=== PATIENT | male | born 1935 | race Caucasian/White ===

== ENCOUNTER 2018-06-14 10:07 | Emergency (ER) | payer MEDICARE, BC ==
--- NOTE | 2018-06-14 10:37 | ED ---
GI/ HPI - HPI Summary HPI Summary: This patient is a 83 year old M presenting to [facility] with a chief complaint of hematuria that began last night. The patient rates the pain 0/10 in severity. Patient denies back pain, similar sx in the past, dysuria, fever, chills, trauma , n/v/d, kidney stones in the past, urinary retention, and passing blood clots. Pt just recovered last month from prostatitis that lasted 4 months. He is not on blood thinners and had a routine psychical at his PCP last week. Hx BPH and sees Dr. Louise in [place] once a year and his last PSA was 1.5. - History of Current Complaint Chief Complaint: EDUrogenitalProblems Time Seen by Provider: 06/14/18 10:20 Stated Complaint: BLOOD IN URINE Hx Obtained From: Patient Timing: Constant Severity: Mild Current Severity: Mild Vaginal Bleeding Description: Bright Red Pain Intensity: 0 Location of Pain: None Associated Signs and Symptoms: Positive: Negative - back pain, similar sx in the past, dysuria, fever, chills, trauma, n/v/d, kidney stones in the past, urinary retention, and passing blood clots. - Allergy/Home Medications Allergies/Adverse Reactions: Allergies Allergy/AdvReac Type Severity Reaction Status Date / Time No Known Allergies Allergy Verified 06/14/18 10:13 Home Medications: Home Medications Alfuzosin HCl [Uroxatral] 10 mg PO DAILY 06/14/18 [History Confirmed 06/14/18] Dutasteride (NF) [Avodart (NF)] 1 cap PO DAILY 06/14/18 [History Confirmed 06/14] Losartan TAB* [Cozaar TAB*] 100 mg PO DAILY 06/14/18 [History Confirmed 06/14/18 ] Tadalafil [Cialis] 2.5 mg PO DAILY 06/14/18 [History Confirmed 06/14/18] PMH/Surg Hx/FS Hx/Imm Hx Cardiovascular History: Reports: Hx Hypertension History: Reports: Hx Benign Prostatic Hyperplasia EENT History: Denies: Hx Deafness Infectious Disease History: No Infectious Disease History: Denies: Traveled Outside the [place] in Last 30 Days - Family History Known Family History: Positive: Hypertension - Social History Lives: With Family Alcohol Use: Rare Hx Substance Use: No Substance Use Type: Reports: None Hx Tobacco Use: No Smoking Status (MU): Never Smoked Tobacco Review of Systems Constitutional: Negative - trauma Negative: Fever Negative: Vomiting, Diarrhea, Nausea Positive: hematuria Musculoskeletal: Negative - back pain All Other Systems Reviewed And Are Negative: Yes Physical Exam - Summary Physical Exam Summary: GENERAL: Patient is a well-developed and nourished M who is lying comfortable in the stretcher. Patient is not in any acute respiratory distress. HEAD AND FACE: Normocephalic EYES: PERRLA, EOMI x 2. EARS: Hearing grossly intact. MOUTH: Oropharynx within normal limits. NECK: Supple, trachea is midline, no adenopathy, no JVD, no carotid bruit. CHEST: Symmetric, no tenderness at palpation LUNGS: Clear to auscultation bilaterally. No wheezing or crackles. CVS: Regular rate and rhythm, S1 and S2 present, no murmurs or gallops appreciated. ABDOMEN: Soft, non-tender. Bowel sounds are normal. No abdominal abnormal pulsations. Back: no CVA tenderness EXTREMITIES: Full ROM in all major joints, no edema, no cyanosis or clubbing. NEURO: Alert and oriented x 3. No acute neurological deficits. Speech is normal and follows commands. SKIN: Dry and warm Triage Information Reviewed: Yes Vital Signs On Initial Exam: Initial Vitals Temp Pulse Resp BP Pulse Ox 97.8 F 70 18 150/71 98 06/14/18 10:10 06/14/18 10:10 06/14/18 10:10 06/14/18 10:10 06/14/18 10:10 Vital Signs Reviewed: Yes Diagnostics - Vital Signs Vital Signs Temp Pulse Resp BP Pulse Ox 06/14/18 10:10 97.8 F 70 18 150/71 98 - Laboratory Result Diagrams: 06/14/18 10:39 06/14/18 10:39 Lab Statement: Any lab studies that have been ordered have been reviewed, and results considered in the medical decision making process. - CT CT Urogram CT Interpretation Completed By: ED Physician Summary of CT Findings: 1. THE PROSTATE GLAND IS ENLARGED WITH INTRALUMINAL EXTENSION INTO THE BLADDER. 2. ADDITIONALLY, THERE IS A NODULAR LESION OF THE WALL OF THE BLADDER ON THE RIGHT THAT. 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 3. RECOMMEND CONSIDERATION OF CORRELATION WITH DIRECT VISUALIZATION. 4. ATHEROSCLEROSIS. ED physician has reviewed this radiology report. - Additional Comments Diagnostic Additional Comments: ABD/Bladder US reveals, per radiologist, Fullness of the left renal collecting system. Lower pole cyst left kidney. Significant post void residual of 266 mL with suggestion of solid appearing masses in the wall of the bladder measuring 1.3 x 1.0 x 1.6 cm and 2.1 x 0.9 x 1.6 cm. Bilateral ureteral jets are noted. Enlarged prostate is present. ED physician has reviewed this radiology report. Re-Evaluation - Re-Evaluation First Eval Re-Evaluation Time: 14:01 Change: Unchanged Comment: Pt is refusing a bhatt catheter. GIGU Course/Dx - Course Assessment/Plan: This patient is a 83 year old M presenting to [facility] with a chief complaint of painless hematuria that began last night. The UA was most consistent with a hemorrhagic cystitis. ABD/Bladder US reveals, per radiologist , Fullness of the left renal collecting system. Lower pole cyst left kidney. Significant post void residual of 266 mL with suggestion of solid appearing masses in the. wall of the bladder measuring 1.3 x 1.0 x 1.6 cm and 2.1 x 0.9 x 1.6 cm. Patient refused bhatt for urinary retention. Bilateral ureteral jets are noted. Enlarged prostate is present. I consulted Dr. Smith at this point and he recommended a CT Urogram and has agreed to see the patient in the ED. CT Urogram reveals, 1. THE PROSTATE GLAND IS ENLARGED WITH INTRALUMINAL EXTENSION INTO THE BLADDER. 2. ADDITIONALLY, THERE IS A NODULAR LESION OF THE WALL OF THE BLADDER ON THE RIGHT THAT. 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 3. RECOMMEND CONSIDERATION OF CORRELATION WITH DIRECT VISUALIZATION. 4. ATHEROSCLEROSIS. Dr. Smith was consulted again and he came and saw the patient at bedside. He suggested discharging the patient and he has agreed to f/u with him tomorrow for a cystoscopy. The patient was covered with an ABX. The patient is agreeable with this plan - Diagnoses Provider Diagnoses: UTI (urinary tract infection), Mass of urinary bladder - Physician Notifications Discussed Care Of Patient With: Roberto Smith Time Discussed With Above Provider: 13:59 Instructed by Provider To: Other - We discussed patient care with Dr. Smith and they recommended CT urogram and he will see the patient 1600 Dr Smith will be in to see the patient in the next 45 minutes. He suggested discharge and having the patient f/u with him tommorow. Discharge - Sign-Out/Discharge Documenting (check all that apply): Patient Departure - Discharge Plan Condition: Stable Disposition: HOME Prescriptions: Cephalexin CAP* [Keflex CAP*] 500 mg PO QID #28 cap Patient Education Materials: Urinary Tract Infection in Men (ED) Referrals: Roberto Smith MD [Medical Doctor] - Rolando Kaminski MD [Primary Care Provider] - 1 Day Additional Instructions: Follow up with your primary care physician in 1-3 days. RETURN TO THE EMERGENCY DEPARTMENT FOR CHANGING OR WORSENING SYMPTOMS. - Billing Disposition and Condition Condition: STABLE Disposition: Home - Attestation Statements Document Initiated by Danny: Yes Documenting Scribe: Lanre Joseph Provider For Whom Danny is Documenting (Include Credential): Mahogany Carranza MD Scribe Attestation: Lanre Ortega scribed for Mahogany Carranza MD on 06/14/18 at 1805. Scribe Documentation Reviewed: Yes Provider Attestation: The documentation as recorded by the Lanre nye accurately reflects the service I personally performed and the decisions made by , Mahogany Carranza MD
[2018-06-14 10:51] LABS: ABS Basophils 0.1 10^3/ul (0-0.2); ABS Eosinophils 0 10^3/ul (0-0.6); ABS Monocytes 0.6 10^3/ul (0-0.8); ABS Neutrophils 4.9 10^3/ul (1.5-7.7); ABS Nucleated RBC 0 10^3/ul; Eosinophil % 0.4 % (0-6); Hematocrit 42 % (42-52); Hemoglobin 14.4 g/dl (14.0-18.0); Lymphocyte % 25.8 % (25-47); Mean Corpuscular HGB Conc 34 g/dl (31-36); Mean Corpuscular Hemoglobin 33 pg (27-31); Mean Corpuscular Volume 97 fL (80-94); Mean Platelet Volume 8.8 fL (7.4-10.4); Nucleated Red Blood Cells % 0; Platelet Count 196 10^3/ul (150-450); Red Blood Count 4.39 10^6/ul (4.00-5.40); Red Cell Distribution Width 14 % (10.5-15); White Blood Count 7.6 10^3/ul (3.5-10.8)
[2018-06-14 11:01] LABS: INR 0.86 (0.77-1.02)
[2018-06-14 11:10] LABS: Urine Appearance Clear; Urine Blood 3+ (Negative); Urine Ketones Negative (Negative); Urine Protein 1+(30 mg/dL) (Negative); Urine Red Blood Cell 2+(6-10/hpf) (Absent); Urine Specific Gravity 1.005 (1.010-1.030); Urine Urobilinogen Negative (Negative); Urine White Blood Cell 2+(11-20/hpf) (Absent)
[2018-06-14 11:11] LABS: EGFR Non-African American 72.7 (>60)
[2018-06-14] MEDS ORDERED: NS 0.9% 1000 ML* 1,000 ML IV ONE (14:00)
[2018-06-14] MEDS ORDERED: cefTRIAXone(*) 1 GM in NS 0.9% 50 ML* 50 ML IVPB ONE (14:02)
[2018-06-14] MEDS ORDERED: Iohexol 300* (CONTRAST) 10 ML SDV IV ONE (14:56)
[2018-06-14 15:31] LABS: Urine Color Amber
[2018-06-14 17:41] VITALS: BP 161/105
--- NOTE | 2018-06-14 21:55 | CONS ---
CC: Dr. Rolando Kaminski; Ramiro Louise MD, Administration Internship, Department of Urology, [facility] * UROLOGY CONSULTATION: DATE OF CONSULT: 06/14/18 - EMERGENCY DEPT REQUESTING PHYSICIAN: Dr. Carranza. DIAGNOSES: 1. Gross hematuria. 2. 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 HISTORY OF PRESENT ILLNESS: Brice Mohan is an 83-year-old nonsmoker, who presented to the emergency room with the gross hematuria, which had started the preceding day. He denies any flank pain or dysuria. There is no history of any recent flank trauma and the only anticoagulant is an occasional aspirin. His past history is significant for longstanding benign prostatic hypertrophy for which he has been on multiple medications and he also states that a few months ago he was treated by Dr. Kaminski for what appears to have been an episode of prostatitis. An initial ultrasound done today had revealed markedly large prostate (volume of 147 cc) and mild left caliectasis and what appeared to be a lesion in the bladder on the right side. A CT urogram was then obtained, which did not reveal any hydronephrosis and did confirm what appears to be a solid lesion in the bladder on the right side. PAST MEDICAL HISTORY: Significant for: 1. Hypertension. 2. Longstanding history of BPH. PAST SURGICAL HISTORY: Significant for left varicocelectomy. MEDICATIONS ON ADMISSION: 1. Losartan 75 mg daily. 2. Avodart 0.5 mg daily. 3. Uroxatral 10 mg daily. 4. Cialis 5 mg daily. 5. Occasional aspirin use. ALLERGIES: No known drug allergies. SOCIAL HISTORY: Smoking history: He is a nonsmoker. REVIEW OF SYSTEMS: He is otherwise in excellent health. There is no history of diabetes mellitus or any other major systemic illness. He is fairly active physically. He denies any chest pain or shortness of breath. PHYSICAL EXAM: Reveals a pleasant gentleman who appears younger than his stated age. Blood pressure is 180/88, pulse 68 per minute and regular, respirations 16 per minute, oxygen saturation 100% on room air, temperature 98.3. Cardiovascular Exam: Regular rate and rhythm. S1 and S2. Lungs are clear bilaterally. Abdomen is soft without masses. Rectal exam was deferred at the present time. DIAGNOSTIC STUDIES/LAB DATA: I reviewed the labs and the imaging studies. His white count is 7.6 with a hemoglobin of 14.4 and hematocrit of 42, platelet count is 196. Sodium is 138, potassium 4.3, BUN and creatinine are normal at 14 and 0.98, glucose is 101. The CT and ultrasound were reviewed by me and have been described above. Urinalysis showed 6 to 10 red blood cells per high-powered field with 1+ bacteria. PLAN/RECOMMENDATIONS: I had a detailed discussion with Mr. Mohan and his son regarding the gross hematuria and the findings on the imaging studies. The next step would be an outpatient flexible cystoscopy in office and likely after that an outpatient transurethral resection of the bladder tumor in the near future. As far as the BPH, the plan is to continue his medical therapy in the form of Uroxatral and Avodart, and I do not think he requires a Wise catheter at the present time. All his questions were answered in detail. [id number]/CPS #: [id number] DARRELL
== END 2018-06-14 17:40 | disposition home or self-care (01) ==
LOC: ED 10:07
DX: N39.0 Urinary tract infection, site not specified (principal); R31.9 Hematuria, unspecified; N32.9 Bladder disorder, unspecified; I10 Essential (primary) hypertension; N40.0 Benign prostatic hyperplasia without lower urinary tract symptoms
CPT/HCPCS: 36415; 74178; 76377; 76770; 80053; 81003; 81015; 85025; 85610; 85730; 87086; 96361; 96374; 99283; J0696; Q9967

== ENCOUNTER 2019-05-21 15:33 | Emergency (ER) | payer MEDICARE, OTHER ==
[2019-05-21] MEDS ORDERED: NS 0.9% 1000 ML** 1,000 ML IV ONE (15:46)
[2019-05-21 16:03] LABS: ABS Basophils 0.1 10^3/ul (0-0.2); ABS Lymphocytes 1.9 10^3/ul (1.0-4.8); ABS Monocytes 0.7 10^3/ul (0-0.8); ABS Neutrophils 6.4 10^3/ul (1.5-7.7); Eosinophil % 0.5 %; Hematocrit 39 % (42-52); Hemoglobin 13.2 g/dL (14.0-18.0); Lymphocyte % 21.3 %; Mean Corpuscular HGB Conc 34 g/dL (31-36); Mean Corpuscular Hemoglobin 32 pg (27-31); Mean Corpuscular Volume 95 fL (80-94); Mean Platelet Volume 8.6 fL (7.4-10.4); Platelet Count 181 10^3/uL (150-450); Red Blood Count 4.09 10^6 /uL (4.18-5.48); Red Cell Distribution Width 14 % (10-15); White Blood Count 9.2 10^3/uL (3.5-10.8)
[2019-05-21] MEDS ORDERED: Morphine 4 MG/ML VIAL (1 ml) 4 MG/ML VIAL IV ONE (16:05)
[2019-05-21] MEDS ORDERED: Ondansetron INJ* 2 MG/ML VIAL IV ONE (16:05)
--- NOTE | 2019-05-21 16:13 | ED ---
Adult Trauma - HPI Summary HPI Summary: Pt is an 84 y/o M presenting to the ED brought in by EMS for a fall. He fell down approximately 10-15 steps, landing on his head and R shoulder. He was able to walk back up the steps. He also notes slight back pain. He denies syncope or chest pain. - History of Current Complaint Stated Complaint: FALL PER EMS Hx Obtained From: Patient, EMS Mechanism of Injury: Fall Ambulatory at the Scene: Yes Loss of Consciousness: no loss of consciousness Onset/Duration: Started Hours Ago, Still Present Onset of Pain: Immediate Onset Severity: Moderate Current Severity: Moderate Pain Intensity: 4 Pain Scale Used: 0-10 Numeric Location: Head, Back, Extremities - R shoulder Aggravating Factor(s): Nothing Alleviating Factor(s): Nothing Associated Signs & Symptoms: Negative: Chest Pain, Loss of Consciousness - Allergy/Home Medications Allergies/Adverse Reactions: Allergies Allergy/AdvReac Type Severity Reaction Status Date / Time No Known Allergies Allergy Verified 05/21/19 15:42 Home Medications: Home Medications Ciclopirox Olamine [Ciclodan] 0.77 % TOPICAL BID 05/21/19 [History Confirmed ] PMH/Surg Hx/FS Hx/Imm Hx Previously Healthy: Yes Endocrine/Hematology History: Denies: Hx Diabetes Cardiovascular History: Reports: Hx Hypertension - ON MEDS History: Reports: Hx Benign Prostatic Hyperplasia Denies: Hx Renal Disease Sensory History: Reports: Hx Contacts or Glasses - READING Denies: Hx Deafness Opthamlomology History: Reports: Hx Contacts or Glasses - READING Infectious Disease History: No Infectious Disease History: Denies: Traveled Outside the [place] in Last 30 Days - Family History Known Family History: Positive: Hypertension - Social History Alcohol Use: Daily Alcohol Amount: 1/2 GLASS WINE/DAY Hx Substance Use: No Substance Use Type: Reports: None Hx Tobacco Use: No Smoking Status (MU): Never Smoked Tobacco Have You Smoked in the Last Year: No Review of Systems Negative: Chest Pain Positive: Arthralgia - R shoulder, Myalgia - back pain Positive: Headache. Negative: Syncope All Other Systems Reviewed And Are Negative: Yes Physical Exam - Summary Physical Exam Summary: VITAL SIGNS: Reviewed. GENERAL: Patient is a well-developed and nourished male who is lying comfortable in the stretcher. Patient is not in any acute respiratory distress. HEAD AND FACE: No signs of trauma. No ecchymosis, hematomas or skull depressions. No sinus tenderness. EYES: PERRLA, EOMI x 2, No injected conjunctiva, no nystagmus. EARS: Hearing grossly intact. Ear canals and tympanic membranes are within normal limits. MOUTH: Oropharynx within normal limits. NECK: Supple, trachea is midline, no adenopathy, no JVD, no carotid bruit, no c- spine tenderness, neck with full ROM. CHEST: Symmetric, no tenderness at palpation. LUNGS: Clear to auscultation bilaterally. No wheezing or crackles. CVS: Regular rate and rhythm, S1 and S2 present, no murmurs or gallops appreciated. ABDOMEN: Soft, non-tender. No signs of distention. No rebound, no guarding, and no masses palpated. Bowel sounds are normal. EXTREMITIES: Obvious R shoulder deformity. Good pulses. Good capillary refill. No chest, back, or hip tenderness. Full ROM in the bilateral LE. NEURO: Alert and oriented x 3. No acute neurological deficits. Speech is normal and follows commands. SKIN: Dry and warm. Laceration to scalp. Skin tear to dorsal aspect of the L hand. Bedside US: No blood around bladder. No blood on the R side of his abd. No blood on L side of abd. No bleeding around the heart is visualized. GCS: 15 Triage Information Reviewed: Yes Vital Signs On Initial Exam: Initial Vitals Temp Pulse Resp BP Pulse Ox 97.7 F 84 26 170/88 99 05/21/19 15:39 05/21/19 15:39 05/21/19 15:39 05/21/19 15:39 05/21/19 15:39 Vital Signs Reviewed: Yes Procedures - Sedation Patient Received Moderate/Deep Sedation with Procedure: No - Laceration/Wound Repair 1 Location: head - R adventist Description: Linear - 6.5cm Anesthesia: Local, 2.0%, Lido, Epi Length, Depth and Shape: 6.5m wide shape Betadine Prep?: No Laceration/Wound Explored: clean Closure: Single Layer Debridement: minimal Suture Type: Nylon - 5-0 Number of Sutures: 18 Layer Closure?: Yes Sterile Dressing Applied?: Yes Diagnostics - Vital Signs Vital Signs Temp Pulse Resp BP Pulse Ox 05/21/19 15:39 97.7 F 84 26 170/88 99 - Laboratory Lab Results: Lab Results 05/21/19 Range/Units 15:55 WBC 9.2 (3.5-10.8) 10^3/uL RBC 4.09 L (4.18-5.48) 10^6 /uL Hgb 13.2 L (14.0-18.0) g/dL Hct 39 L (42-52) % MCV 95 H (80-94) fL MCH 32 H (27-31) pg MCHC 34 (31-36) g/dL RDW 14 (10-15) % Plt Count 181 (150-450) 10^3/uL MPV 8.6 (7.4-10.4) fL Neut % (Auto) 70.2 % Lymph % (Auto) 21.3 % Wells % (Auto) 7.3 % Eos % (Auto) 0.5 % Baso % (Auto) 0.7 % Absolute Neuts (auto) 6.4 (1.5-7.7) 10^3/ul Absolute Lymphs (auto) 1.9 (1.0-4.8) 10^3/ul Absolute Monos (auto) 0.7 (0-0.8) 10^3/ul Absolute Eos (auto) 0.0 (0-0.6) 10^3/ul Absolute Basos (auto) 0.1 (0-0.2) 10^3/ul Absolute Nucleated RBC 0.0 10^3/ul Nucleated RBC % 0.0 Result Diagrams: 05/21/19 15:55 05/21/19 15:55 Lab Statement: Any lab studies that have been ordered have been reviewed, and results considered in the medical decision making process. - Radiology R shoulder XR Radiology Interpretation Completed By: Radiologist Summary of Radiographic Findings: 1. OSTEOARTHRITIS. 2. WIDENING OF THE AC INTERVAL. 3. NO ACUTE OSSEOUS INJURY. IF SYMPTOMS PERSIST, RECOMMEND REPEAT IMAGING. ED physician has reviewed this report. CXR Radiology Interpretation Completed By: Radiologist Summary of Radiographic Findings: No active cardiopulmonary disease is noted. ED physician has reviewed this report. - CT Brain CT CT Interpretation Completed By: Radiologist Summary of CT Findings: No acute intracranial pathology. ED physician has reviewed this report. CT C-spine CT Interpretation Completed By: Radiologist Summary of CT Findings: LIMITED STUDY. NONDISPLACED FRACTURES OF THE RIGHT FIRST AND SECOND RIBS. DEGENERATIVE DISC DISEASE AND OSTEOARTHRITIS. ED physician has reviewed this report. Chest CT CT Interpretation Completed By: Radiologist Summary of CT Findings: FRACTURES OF THE RIGHT FIRST, SECOND, AND THIRD RIBS. THERE IS WIDENING OF THE RIGHT AC INTERVAL. THERE IS STRANDING OF THE FAT OF THE CORACOCLAVICULAR FOSSA SUGGESTIVE OF SOME DEGREE OF LOCAL HEMATOMA. ED physician has reviewed this report. - EKG 1543 Cardiac Rate: Tachycardia - 104bpm EKG Rhythm: Sinus Tachycardia ST Segment: Normal Ectopy: None Summary of EKG Findings: EKG at 1543 shows sinus tachycardia at 104bpm with ventricular bigeminy. No STEMI. ED physician has reviewed and interpreted this report. Adult Trauma Course/Dx - Course Assessment/Plan: Patient is an 84-year-old male who presents to the emergency department the ambulance after the patient fell approximately 10-15 steps. The patient was ambulatory on the scene, and his FAST exam was negative. The patient was placed in a threat monitoring analyst, IV access was obtained. Patient declined any pain medications at this time. The patient is alert and oriented 3. Results without any significant abnormality except for slight anemia, glucose is 116, lactic acid is 2.2. CPK is 268. After the patient came back from x-rays the patient was given morphine and Zofran for nausea and pain. Head CT impression: No acute intracranial pathology. C-spine CT impression: Limited the study. Nondisplaced fractures of the right first and second ribs. Degenerative disc disease and also arthritis. Chest x-ray impression: No active cardiopulmonary disease. Right shoulder x-ray impression: Osteoarthritis. Widening of the AC interval. No acute osseous injury. Chest CT impression: FRACTURES OF THE RIGHT FIRST, SECOND, AND THIRD RIBS. THERE IS WIDENING OF THE RIGHT AC INTERVAL. THERE IS STRANDING OF THE FAT OF THE CORACOCLAVICULAR FOSSA SUGGESTIVE OF SOME DEGREE OF LOCAL HEMATOMA. I discussed my physical exam and findings with Dr. Barragan ED attending at [facility] who accepted the patient for transfer. The patient is hemodynamically stable alert and oriented 3. - Diagnoses Provider Diagnoses: Trauma, Multiple rib fractures involving first rib Discharge ED - Sign-Out/Discharge Documenting (check all that apply): Patient Departure - Discharge Plan Condition: Stable Disposition: TRANS [facility] OF CARE FAC Referrals: Rolando Kaminski MD [Primary Care Provider] - - Billing Disposition and Condition Condition: STABLE Disposition: Trans Higher Lvl of Care Fac - Attestation Statements Document Initiated by Danny: Yes Documenting Scribe: Ann Shelton Provider For Whom Danny is Documenting (Include Credential): Zeferino Dover MD. Scribe Attestation: IAnn, scribed for Zeferino Dover MD. on 05/21/19 at 1847. Scribe Documentation Reviewed: Yes Provider Attestation: The documentation as recorded by the Ann nye accurately reflects the service I personally performed and the decisions made by me, Zeferino Dover MD. Status of Scribe Document: Viewed Consult Consult: 1815 - I spoke with Dr. Church of [facility] who will be accepting the pt to their facility.
[2019-05-21 16:31] LABS: Albumin/Globulin Ratio 1.5 (1-3); BUN/Creatinine Ratio 15.5 (8-20); Calcium 9.1 mg/dL (8.6-10.3); EGFR African American 88.8 (>60); EGFR Non-African American 73.4 (>60); Globulin 2.7 g/dL (2-4); Potassium 3.8 mmol/L (3.5-5.0); Total Bilirubin 0.5 mg/dL (0.2-1.0); Total Protein 6.7 g/dL (6.4-8.9)
[2019-05-21] MEDS ORDERED: Iohexol 300* (CONTRAST) 10 ML SDV IV ONE (17:13)
[2019-05-21 18:10] LABS: Urine Appearance Clear; Urine Bacteria Absent (Absent); Urine Bilirubin Negative (Negative); Urine Blood 1+ (Negative); Urine Color Yellow; Urine Glucose Negative (Negative); Urine Ketones Trace (Negative); Urine Nitrite Negative (Negative); Urine Protein Negative (Negative); Urine Red Blood Cell 1+(3-5/hpf) (Absent); Urine Specific Gravity 1.018 (1.010-1.030); Urine Squamous Epithelial Cell Present (Absent); Urine Urobilinogen Negative (Negative); Urine White Blood Cell 1+(6-10/hpf) (Absent)
[2019-05-21] MEDS ORDERED: Lidocaine 2% w/ EPI 1:200,000* 20 ML SDV VIAL ONE (18:25)
[2019-05-21] MEDS: Tetan/Diph/Pertus SYR(Tdap)* 0.5 ML SYR(BOOSTRIX) use SYR contains LATEX IM ONE ×2 (18:32→18:38)
[2019-05-21] MEDS ORDERED: Bacitracin OINTMENT* 0.5% 0.5 oz TUBE ONE (18:40)
[2019-05-21] MEDS ORDERED: Bacitracin OINTMENT* 0.5% 0.5 oz TUBE TOPICAL ONE (18:42)
[2019-05-21 19:01] VITALS: BP 143/85
== END 2019-05-21 19:00 | disposition short-term general hospital (02) ==
LOC: ED 15:33
DX: S22.41XA Multiple fractures of ribs, right side, initial encounter for closed fracture (principal); S01.81XA Laceration without foreign body of other part of head, initial encounter; W10.9XXA Fall (on) (from) unspecified stairs and steps, initial encounter; Y92.9 Unspecified place or not applicable; I10 Essential (primary) hypertension; N40.0 Benign prostatic hyperplasia without lower urinary tract symptoms
CPT/HCPCS: 12014; 36415; 70450; 71045; 71260; 72125; 80053; 81003; 81015; 82550; 83605; 85025; 87086; 90715; 93005; 96361; 96374; 96375; 99285; A9270-GY; J2270; J2405; Q9967